=== PATIENT | female | born 1995 | race Caucasian/White ===

== ENCOUNTER 2023-05-26 07:30 | Outpatient (RCR) | payer BC, SELFPAY | END 2023-07-08 10:08 | disposition home or self-care (01) | PROVIDERS: Visit Provider Orthopaedic Surgery | DX: M25.361 Other instability, right knee (principal); M94.261 Chondromalacia, right knee; M25.561 Pain in right knee; Z51.89 Encounter for other specified aftercare | CPT/HCPCS: 97110; 97161 ==